=== PATIENT | female | born 1985 | race Caucasian/White ===

== ENCOUNTER 2018-01-08 19:09 | Emergency (ER) | payer SELFPAY ==
[2018-01-08 19:14] VITALS: BP 130/89; PULSE 98; RESP 18; TEMP 98.4; O2SAT 100
[2018-01-08] MEDS ORDERED: ACETAMINOPHEN/HYDROcodone 325 MG/7.5 MG TAB PO ONE (19:30)
[2018-01-08] MEDS ORDERED: LIDOCAINE HCL 2% 20 ML VIAL INFIL ONE (19:30)
[2018-01-08] MEDS ORDERED: TETANUS/DIPHTHERIA TOXOID ADULT 0.5 ML VIAL IM ONE (19:30)
[2018-01-08] MEDS ORDERED: ONDANSETRON ODT 4 MG TAB PO ONE (20:00)
--- NOTE | 2018-01-08 20:03 | PD ---
HPI Chief Complaint: Fall Time Seen by Provider: 19:21 Travel History International Travel<30 days: No Contact w/Intl Traveler<30days: No Traveled to known affect area: No History of Present Illness HPI Patient is a 32-year-old female presenting to the emergency room for evaluation after she sustained a mechanical fall. Patient was running in the rain in plastic shoes when she tripped and fell hitting her head on the pavement, scraping her hands. She denies any headache, nausea, dizziness. Patient denies any loss of consciousness. She reports the pain is a 6 out of 10 she states is throbbing, constant. Symptom onset was sudden, symptom severity is moderate. Patient further denies any neck pain, back pain. She did not get dizzy or have chest pain prior to falling. [facility] Past Medical History Medical History: Denies Significant Hx Diminished Hearing: No Immunizations Current: Yes Thyroid Disease: Yes (HYPO) ?: Not Past Surgical History Oral Surgery: Yes Social History Alcohol Use: No Tobacco Use: No Substance Use: No Allergies-Medications (Allergen,Severity, Reaction): Coded Allergies: amoxicillin (Verified Allergy, Severe, 01/08/18) Reported Meds & Prescriptions Reported Meds & Active Scripts Active No Active Prescriptions or Reported Medications Review of Systems Except as stated in HPI: all other systems reviewed are Neg Eyes: No: Blurred Vision HENT: No: Headaches, Lightheadedness, Neck Pain Cardiovascular: No: Chest Pain or Discomfort Respiratory: No: Shortness of Breath Gastrointestinal: No: Nausea, Abdominal Pain Musculoskeletal: Positive: Pain Skin: Positive Lesions Neurologic: No: Dizziness Physical Exam Narrative GENERAL: Well-developed, well-nourished, alert female. Presenting in no acute distress. SKIN: Warm and dry. Superficial abrasions to the palmar aspect of the right hand just distal to the wrist. Superficial abrasions to the left hand on the palmar aspect just distal to the wrist. Laceration to the bridge of nose, 1 cm , partial skin avulsion at the same site. Superficial abrasions to the upper lip on the inner and outer aspect. HEAD: Atraumatic. Normocephalic. EYES: Pupils equal and round. No scleral icterus. No injection or drainage. Extraocular movements are intact. No pain with movement of eyes. ENT: No nasal bleeding or discharge. Mucous membranes pink and moist. NECK: Trachea midline. No JVD. CARDIOVASCULAR: Regular rate and rhythm. RESPIRATORY: No accessory muscle use. Clear to auscultation. Breath sounds equal bilaterally. GASTROINTESTINAL: Abdomen soft, non-tender, nondistended. Hepatic and splenic margins not palpable. MUSCULOSKELETAL: Extremities without clubbing, cyanosis, or edema. No obvious deformities. No cervical, thoracic or lumbar spine tenderness or step-off noted. NEUROLOGICAL: Awake and alert. No obvious cranial nerve deficits. Motor grossly within normal limits. Five out of 5 muscle strength in the arms and legs. Normal speech. PSYCHIATRIC: Appropriate mood and affect; insight and judgment normal. Data Data Last Documented VS Vital Signs Date Time Temp Pulse Resp B/P (MAP) Pulse Ox O2 Delivery O2 Flow Rate FiO2 01/08/18 19:14 98.4 98 18 130/89 (103) [address] Facial Bones W/O Iv Cont (01/08/18 ) Ct Cerv Spine W/O Contrast (01/08/18 ) Ct Brain W/O Iv Contrast(Rout) (01/08/18 ) Ed Urine Pregnancytest Poc (01/08/18 19:28) Acetamin-Hydrocod 325-7.5 Mg ([place] 7.5 (01/08/18 19:30) Tetanus/Diphtheria Tox Adult (Tetanus/Di (01/08/18 19:30) Lidocaine 2% Inj (Xylocaine 2% Inj) (01/08/18 19:30) Ondansetron Odt (Zofran Odt) (01/08/18 20:00) Ed Discharge Order (01/08/18 21:10) MDM Medical Decision Making Medical Screen Exam Complete: Yes Emergency Medical Condition: Yes Interpretation(s) Last Impressions Maxillofacial CT 01/08/18 0000 Signed Impressions: CONCLUSION: 1. No acute bony abnormalities. Head CT 01/08/18 0000 Signed Impressions: CONCLUSION: 1. No acute intracranial abnormalities. Cervical Spine CT 01/08/18 0000 Signed Impressions: CONCLUSION: 1. No acute findings. Vital Signs Date Time Temp Pulse Resp B/P (MAP) Pulse Ox O2 Delivery O2 Flow Rate FiO2 01/08/18 19:14 98.4 98 18 130/89 (103) 100 Differential Diagnosis Laceration versus abrasion versus contusion versus hemorrhage versus fracture versus other Narrative Course Patient is a 32-year-old female presenting to the emergency department after a mechanical fall. Patient sustained abrasions and a laceration to the bridge of her nose. Please see procedure report for laceration repair. CT scans ordered and pending. Medications ordered for pain. No focal deficits on exam. Wound care was performed to abrasions on hands by me. Topical antibiotic ointment was applied. CT scans of the facial bones, brain and cervical spine are negative for acute abnormality. Findings were discussed with patient and her boyfriend. Patient was given strict return precautions. Discussed possible concussion symptoms with her as well as concerning neurological findings. They both verbalized understanding of these instructions. Additionally patient was given instructions on how to care for her stitches and abrasions. She was encouraged return to emergency department for any new or worsening symptoms. Patient stable for discharge. Procedures Procedure Narrative LACERATION LOCATION: Bridge of nose LENGTH: 1 cm NUMBER OF STITCHES/SHANNAN: 5 stitches REPAIR: The area of the laceration was prepped with Betadine and sterilely draped. The laceration was infiltrated with 1% lidocaine. The wound was copiously irrigated and explored without evidence of foreign body, tendon injury or neurovascular injury. The wound was closed using 6-0 Ethilon. This was a 1 layer repair. A sterile dressing was applied. The patient was advised to keep the dressing clean and dry. Patient tolerated the procedure well. Diagnosis Primary Impression: Fall Qualified Codes: W19.XXXA - Unspecified fall, initial encounter Additional Impressions: Head contusion Qualified Codes: S00.93XA - Contusion of unspecified part of head, initial encounter Abrasion Laceration of nose Qualified Codes: S01.21XA - Laceration without foreign body of nose, initial encounter Referrals: [facility] Primary Care Physician Patient Instructions: Care For Your Stitches (ED), Concussion (ED), General Instructions, Head Injury (ED) Additional Instructions: Return to emergency department immediately for any new or worsening symptoms as discussed Take medication as needed and as directed for pain, do not drive or operate machinery or taking narcotic pain medication Apply cool compresses to affected area to help alleviate pain and swelling Follow-up with a primary doctor or at the [facility] Keep stitches clean and dry, they will need to be removed in 1 week to 10 days, you can return to emergency department or follow-up with a primary provider. Med/Other Pt SpecificInfo: Prescription(s) given Scripts Acetaminophen-Codeine (Tylenol-Codeine #3) 300-30 mg Tab 1 TAB PO Q4H Y for PAIN, #15 TAB 0 Refills Prov: Gillian Pace 01/08/18 Disposition: 01 DISCHARGE HOME Condition: Stable Gillian Pace January 08, 2018 20:03
--- NOTE | 2018-01-08 20:47 | RADRPT ---
EXAM DATE: 01/08/2018 8:36 PM EDT AGE/SEX: 32 years / Female INDICATIONS: Trauma, fall CLINICAL DATA: This is the patient's initial encounter. Patient reports that signs and symptoms have been present for 1 day and indicates a pain score of 3/10. MEDICAL/SURGICAL HISTORY: Hypothyroidism. None. RADIATION DOSE: 60.00 CTDI (mGy) COMPARISON: No prior [place] exams available for comparison. TECHNIQUE: Contiguous images in the axial and coronal planes were obtained using helical multirow de tector technique. Using automated exposure control and adjustment of the mA and/or kV according to p atient size, radiation dose was kept as low as reasonably achievable to obtain optimal diagnostic anup lity images. FINDINGS: No acute fracture. Globes intact. Small retention cysts in both maxillary sinuses. CONCLUSION: 1. No acute bony abnormalities. Electronically signed by: Fabian Estrada MD 01/08/2018 8:45 PM EDT
--- NOTE | 2018-01-08 20:49 | RADRPT ---
EXAM DATE: 01/08/2018 8:34 PM EDT AGE/SEX: 32 years / Female INDICATIONS: Trauma, fall CLINICAL DATA: This is the patient's initial encounter. Patient reports that signs and symptoms have been present for 1 day and indicates a pain score of 3/10. MEDICAL/SURGICAL HISTORY: Hypothyroidism. Umbilical hernia repair. RADIATION DOSE: 23.59 CTDI (mGy) COMPARISON: No prior [place] exams available for comparison. TECHNIQUE: Contiguous axial images were obtained using helical multirow detector technique. The vol umetric data was post-processed with multiplanar reconstruction in oblique axial, sagittal, and coron al planes. Using automated exposure control and adjustment of the mA and/or kV according to patient s ize, radiation dose was kept as low as reasonably achievable to obtain optimal diagnostic quality diana ges. FINDINGS: No acute fracture or subluxation. No prevertebral soft tissue swelling. There is no bony canal stenos is. CONCLUSION: 1. No acute findings. Electronically signed by: Fabian Estrada MD 01/08/2018 8:48 PM EDT
--- NOTE | 2018-01-08 20:50 | RADRPT ---
EXAM DATE: 01/08/2018 8:28 PM EDT AGE/SEX: 32 years / Female INDICATIONS: Trauma, fall CLINICAL DATA: This is the patient's initial encounter. Patient reports that signs and symptoms have been present for 1 day and indicates a pain score of 3/10. MEDICAL/SURGICAL HISTORY: Hypothyroidism. None. RADIATION DOSE: 31.14 CTDI (mGy) COMPARISON: No prior [place] exams available for comparison. TECHNIQUE: CT of the head without contrast. Using automated exposure control and adjustment of the mA and/or kV according to patient size, radiation dose was kept as low as reasonably achievable to ob tain optimal diagnostic quality images. FINDINGS: Cerebrum: The ventricles are normal for age. No evidence of midline shift, mass lesion, hemorrhage or acute infarction. No extraaxial fluid collections are seen. Posterior Fossa: The cerebellum and brainstem are intact. The 4th ventricle is midline. The cerebe llopontine angle is unremarkable. Extracranial: The visualized portion of the orbits is intact. Skull: The calvaria is intact. No evidence of skull fracture. CONCLUSION: 1. No acute intracranial abnormalities. Electronically signed by: Fabian Estrada MD 01/08/2018 8:49 PM EDT
[2018-01-08] MEDS ORDERED: TYLETAB34 PO (21:13)
== END 2018-01-08 21:33 | disposition home or self-care (01) ==
LOC: NEPD 19:09
DX: S00.93XA Contusion of unspecified part of head, initial encounter (principal); S01.21XA Laceration without foreign body of nose, initial encounter; W01.0XXA Fall on same level from slipping, tripping and stumbling without subsequent striking against object, initial encounter; Y93.02 Activity, running; E03.9 Hypothyroidism, unspecified; Z23 Encounter for immunization
CPT/HCPCS: 12011; 70450; 70486; 72125; 84703; 90471; 90714